=== PATIENT | female | born 1950 | race Caucasian/White ===

== ENCOUNTER 2023-04-06 16:24 | Outpatient (RCR) | payer MEDICARE, OTHER, SELFPAY | END 2023-04-06 23:59 | disposition home or self-care (01) | LOC: RPT 16:24 | PROVIDERS: ATTENDING PHYSICIAN Surgery Plastic and Reconstructive Surgery; FAMILY PHYSICIAN Family Medicine | DX: C50.912 Malignant neoplasm of unspecified site of left female breast (principal); Z01.818 Encounter for other preprocedural examination | CPT/HCPCS: 97110; 97140; 97164 ==

== ENCOUNTER 2023-05-05 16:21 | Outpatient (RCR) | payer MEDICARE, OTHER, SELFPAY | END 2023-05-05 23:59 | disposition home or self-care (01) | LOC: RPT 16:21 | PROVIDERS: ATTENDING PHYSICIAN Surgery Plastic and Reconstructive Surgery; FAMILY PHYSICIAN Family Medicine | DX: I97.2 Postmastectomy lymphedema syndrome (principal); C50.912 Malignant neoplasm of unspecified site of left female breast | CPT/HCPCS: 97110; 97140; 97535 ==

== ENCOUNTER 2023-05-19 16:05 | Outpatient (RCR) | payer MEDICARE, OTHER, SELFPAY | END 2023-05-20 10:20 | disposition home or self-care (01) | LOC: RPT 16:05 | PROVIDERS: ATTENDING PHYSICIAN Surgery Plastic and Reconstructive Surgery; FAMILY PHYSICIAN Family Medicine | DX: I97.2 Postmastectomy lymphedema syndrome (principal); C50.912 Malignant neoplasm of unspecified site of left female breast | CPT/HCPCS: 97140; 97535 ==

== ENCOUNTER 2023-12-07 16:20 | Outpatient (RCR) | payer MEDICARE, OTHER, SELFPAY | END 2023-12-07 23:59 | disposition home or self-care (01) | LOC: RPT 16:20 | PROVIDERS: ATTENDING PHYSICIAN Surgery Plastic and Reconstructive Surgery; FAMILY PHYSICIAN Family Medicine | DX: I97.2 Postmastectomy lymphedema syndrome (principal); C50.912 Malignant neoplasm of unspecified site of left female breast; C50.911 Malignant neoplasm of unspecified site of right female breast; R29.3 Abnormal posture; Z73.6 Limitation of activities due to disability; L90.5 Scar conditions and fibrosis of skin; R53.0 Neoplastic (malignant) related fatigue | CPT/HCPCS: 97110; 97140; 97163 ==

== ENCOUNTER → 2024-08-26 09:58 | Outpatient (REF) | payer MEDICARE, OTHER, SELFPAY | LOC: RCS 09:58 | PROVIDERS: ATTENDING PHYSICIAN Family Medicine | DX: R06.09 Other forms of dyspnea (principal); E78.2 Mixed hyperlipidemia | CPT/HCPCS: 93306 ==